=== PATIENT | female | born 1955 | race Caucasian/White ===

== ENCOUNTER 2019-02-05 22:05 | Emergency (ER) | payer MEDICAID ==
[~2019-02-05] VITALS: Ht 160 cm; Wt 83.9 kg
[~2019-02-05 22:05] MED LIST: CLON1TAB3
--- OUTSIDE RECORDS SUMMARY | 2019-02-05 22:10 | XMS REPORT | Continuity of Care Document ---
Author Organization Unknown Address Unknown Allergies Active Description Code Type Severity Reaction Onset Reported/Identified Relationship to Patient Clinical Status Yes IODINE 4540 DRUG INGREDI High Other 08/17/2016 08/17/2016 Yes RISPERIDONE 7254 DRUG INGREDI N /A Other 08/17/2016 08/17/2016 Medications Medication Packaging Start Date Stop Date Route Dosage Sig ALUM T MAG HYDROXIDE-SIMETH 200-200-20 MG/5ML PO SUSP 08/17/2016 Oral 30 4 TIMES DAILY PRN TRAZODONE HCL 100 MG PO TABS Oral 100 BEDTIME PRN OLANZAPINE 10 MG PO TBDP 2015 Oral 10 2 TIMES DAILY PRN ACETAMINOPHEN 325 MG PO TABS Oral 650 EVERY 6 HOURS PRN NICOTINE POLACRILEX 2 MG MT LOZG 08/17/2016 Oral 2 EVERY 2 HOURS PRN MAGNESIUM HYDROXIDE 400 MG/5ML PO SUSP 08/17/2016 Oral 30 DAILY PRN QUETIAPINE FUMARATE 25 MG PO TABS 08/17/2016 Oral 25 4 TIMES DAILY PRN ARIPIPRAZOLE 10 MG PO TABS 2015 Oral 10 2 TIMES DAILY PROPRANOLOL HCL 10 MG PO TABS Oral 20 DAILY INFLUENZA VAC SPLIT QUAD 0.5 ML IM DANTE 08/18/2016 Intramuscular 0.5 ONCE ESCITALOPRAM OXALATE 10 MG PO TABS 08/18/2016 Oral 10 DAILY INFLUENZA VAC SPLIT QUAD 0.5 ML IM DANTE 08/18/2016 Intramuscular 0.5 Prior to discharge ESCITALOPRAM OXALATE 10 MG PO TABS 08/19/2016 Oral 10 ONCE ESCITALOPRAM OXALATE 20 MG PO TABS 08/20/2016 Oral 20 DAILY Problems There is no data. Procedures There is no data. Results Test Result Range COMPREHENSIVE METABOLIC PANEL - 08/18/16 06:26 ALBUMIN 4.2 g/dL 3.4-4.8 ALKALINE PHOSPHATASE 80 U/L 29-122 ALT 39 U/L 10-46 AST 29 U/L 16-37 BILIRUBIN,TOTAL 0.4 mg/dL 0.2-1.3 BUN BLOOD 13 mg/dL 6-20 CALCIUM 9.8 mg/dL 8.7-10.5 CHLORIDE 110 mmol/L 99-111 CO2 23 mmol/L 20-36 CREATININE 0.58 mg/dL 0.40-1.10 EGFR > mL/min >59 GLUCOSE 107 mg/dL 74-106 POTASSIUM 4.6 mmol/L 3.6-4.9 PROTEIN TOTAL 6.8 g/dL 6.4-8.3 SODIUM 142 mmol/L 136-145 TSH (REFLEX FREE T4 IF ABNORMAL) - 08/18/16 06:26 TSH 0.793 uIU/mL 0.400-4.000 CBC WITH AUTO DIFFERENTIAL - 08/18/16 06:26 BASOPHILS RELATIVE PERCENT 0.4 % 0.0-2.5 EOSINOPHILS RELATIVE PERCENT 1.4 % <=5.0 HEMATOCRIT 40.8 % 34.9-44.5 HEMOGLOBIN 13.4 g/dL 12.0-15.5 LYMPHOCYTES RELATIVE PERCENT 36.6 % 22.0-49.0 MEAN CORPUSCULAR HEMOGLOBIN 29.4 pg 26.0-34.0 MEAN CORPUSCULAR HEMOGLOBIN CONC 32.9 g/dL 31.0-37.0 MEAN CORPUSCULAR VOLUME 89.3 fL 81.6-98.3 MONOCYTES RELATIVE PERCENT 6.2 % 2.0-9.0 NEUTROPHILS RELATIVE PERCENT 55.4 % 40.0-75.0 PLATELET COUNT 208 10E9/L 150-450 RED BLOOD CELL COUNT 4.57 10E12/L 3.90-5.03 RED CELL DISTRIBUTION WIDTH 13.0 % 11.9-15.5 [id number] 5.3 10E9/L 3.5-10.5 8001484 2.00 10E9/L 0.90-2.90 [id number] 0.30 10E9/L 0.30-0.90 [id number] 0.10 10E9/L 0.05-0.50 [id number] 3.00 10E9/L 1.70-7.00 [id number] 0.00 10E9/L 0.00-0.30 DRUG SCREEN (8) MEDICAL - 08/18/16 17:10 AMPHETAMINE Positive Cutoff 1000 ng/mL Negative BARBITURATES Negative Cutoff 200 ng/mL Negative BENZODIAZEPINES Negative Cutoff 200 ng/mL Negative COCAINE (METABOLITE) Negative Cutoff 300 ng/mL Negative MDMA URINE Negative Cutoff 500 ng/mL Negative OPIATES Negative Cutoff 300 ng/mL Negative PCP Negative Cutoff 25 ng/mL Negative PH UA 7.0 5.0-8.0 SPECIFIC GRAVITY UA 1.020 1.003-1.030 THC Negative Cutoff 50 ng/mL Negative [id number] Chain of custody is on file at [facility], [place], [place] Encounters ACCT No. Visit Date/Time Discharge Status Pt. Type Provider Facility Loc./Unit Complaint [id number] 08/17/2016 14:48:00 08/19/2016 17:10:00 DIS Inpatient AMILCAR MADERA [facility] VN [id number] 08/17/2016 16:30:39 Document Registration
--- NOTE | 2019-02-05 22:30 | ED Lower Extremity ---
General Stated Complaint: LEG PAIN History of Present Illness Date Seen by Provider: Feb 05, 2019 Time Seen by Provider: 22:26 Initial Comments Patient presents emergency department for evaluation of muscle spasms to bilateral legs have been going on for approximately 45 minutes. Spasms are primarily in the bilateral hamstrings and she says they are intense and they usually do not last this long. She says that she does get muscle spasms but usually go away quicker and usually resolve on their own. She says she has drinking pop but not necessarily staying that well-hydrated. She drove herself here and does not want to take any sedating medications. Allergies and Home Medications Allergies Coded Allergies: iodine (Unverified Allergy, Mild, 02/05/19) ziprasidone (Unverified Allergy, Mild, 02/05/19) Home Medications No Active Prescriptions or Reported Meds Patient Home Medication List Home Medication List Reviewed: Yes Review of Systems Constitutional: No chills, No fever Respiratory: No short of breath Cardiovascular: No chest pain Gastrointestinal: No diarrhea, No nausea, No vomiting Skin: No rash Psychiatric/Neurological: Denies Numbness, Denies Weakness Past Yqdkhcq-Qqxvtd-Yknfbp Hx Patient Social History Recent Foreign Travel: No Contact w/Someone Who Travel: No Physical Exam Vital Signs Vital Signs - First Documented 02/05/19 22:32 Temp 97.8 Pulse 91 Resp 18 B/P (MAP) 146/83 (104) Pulse Ox 97 Capillary Refill : Height, Weight, BMI Height: '" Weight: lbs. oz. kg; BMI Method: General Appearance: WD/WN, no apparent distress Cardiovascular: regular rate, rhythm Respiratory: no respiratory distress Legs: bilateral leg non-tender, bilateral leg normal inspection, bilateral leg normal range of motion Neurologic/Psychiatric: alert, oriented x 3 Skin: normal color, warm/dry Progress/Results/Core Measures Results/Orders Lab Results Laboratory Tests Test 02/05/19 23:00 Range/Units Sodium Level 141 135-145 MMOL/L Potassium Level 4.2 3.6-5.0 MMOL/L Chloride Level 104 98-107 MMOL/L Carbon Dioxide Level 21 21-32 MMOL/L Anion Gap 16 H 5-14 MMOL/L Blood Urea Nitrogen 20 H 7-18 MG/DL Creatinine 0.93 0.60-1.30 MG/DL Estimat Glomerular Filtration Rate > 60 BUN/Creatinine Ratio 22 Glucose Level 108 H 70-105 MG/DL Calcium Level 9.9 8.5-10.1 MG/DL Corrected Calcium 8.5-10.1 MG/DL Magnesium Level 1.6 L 1.8-2.4 MG/DL Total Bilirubin 0.5 0.1-1.0 MG/DL Aspartate Amino Transf (AST/SGOT) 18 5-34 U/L Alanine Aminotransferase (ALT/SGPT) 17 0-55 U/L Alkaline Phosphatase 78 40-136 U/L Total Protein 7.3 6.4-8.2 GM/DL Albumin 4.7 H 3.2-4.5 GM/DL My Orders Orders - ARIELA CISNEROS DO Magnesium (02/05/19 22:25) Comprehensive Metabolic Panel (02/05/19 22:25) Vital Signs/I&O 02/05/19 22:32 Temp 97.8 Pulse 91 Resp 18 B/P (MAP) 146/83 (104) Pulse Ox 97 Progress Progress Note : Progress Note Patient's exam is quite benign with no pain swelling or deformity and she was able to ambulate with a normal gait. Given she does not stay well-hydrated and will go ahead and check renal function and electrolytes and see if there is any obvious abnormality I can correct here. Patient given Y solution to drink and her muscle cramps improved significantly. Her magnesium level is slightly decreased and I told her we could replace IV however she refused stating that she was quite tired and wanted to go home but returned replace her magnesium supplements and diet. I told patient to follow up primary care provider within 2-3 days to ensure improvement and come back sooner if worsening pain swelling fevers or general concerns. Patient aware and agreeable with plan for discharge and verbalized understanding of the above instructions. Departure Impression Primary Impression: Hypomagnesemia Additional Impression: Muscle cramping Disposition: 01 HOME, SELF-CARE Condition: Stable Departure-Patient Inst. Decision time for Depature: 23:50 Referrals: ANDRES RAMIREZ MD (PCP) Primary Care Physician NO,LOCAL PHYSICIAN (Family) Primary Care Physician Patient Instructions: Low Magnesium Level (DC) Scripts No Active Prescriptions or Reported Meds ARIELA CISNEROS DO Feb 05, 2019 22:30
[2019-02-05 23:32] LABS: ALANINE AMINOTRANSFERASE 17 U/L (0-55); ALBUMIN 4.7 GM/DL (3.2-4.5); ALKALINE PHOSPHATASE 78 U/L (40-136); BILIRUBIN,TOTAL 0.5 MG/DL (0.1-1.0); BUN/CREATININE RATIO 22; CALCIUM 9.9 MG/DL (8.5-10.1); CARBON DIOXIDE 21 MMOL/L (21-32); CHLORIDE 104 MMOL/L (98-107); CREATININE SERUM 0.93 MG/DL (0.60-1.30); GFR ESTIMATED > 60; GLUCOSE 108 MG/DL (70-105); MAGNESIUM 1.6 MG/DL (1.8-2.4); POTASSIUM 4.2 MMOL/L (3.6-5.0); SODIUM 141 MMOL/L (135-145); TOTAL PROTEIN 7.3 GM/DL (6.4-8.2)
[2019-02-06 00:09] VITALS: BP 123/96
== END 2019-02-06 00:09 | disposition home or self-care (01) ==
LOC: EDUNIT# 22:05 → ER FS 22:06
DX: R25.2 Cramp and spasm (principal); E83.42 Hypomagnesemia; Z91.041 Radiographic dye allergy status; Z88.8 Allergy status to other drugs, medicaments and biological substances
CPT/HCPCS: 36415; 80053; 83735; 99283

== ENCOUNTER 2019-03-05 23:51 | Emergency (ER) | payer MEDICAID ==
[~2019-03-05] VITALS: Ht 162.6 cm; Wt 81.6 kg
--- OUTSIDE RECORDS SUMMARY | 2019-03-05 23:57 | XMS REPORT | Continuity of Care Document ---
[...] RED CELL DISTRIBUTION WIDTH 13.0 % 11.9-15.5 [id number] 5.3 10E9/L 3.5-10.5 [id number] 2.00 10E9/L 0.90-2.90 [id number] 0.30 10E9/L 0.30-0.90 [id number] 0.10 10E9/L 0.05-0.50 [id number] 3.00 10E9/L 1.70-7.00 [id number] 0.00 10E9/L 0.00-0.30 DRUG SCREEN (8) MEDICAL [...] 1.003-1.030 THC Negative Cutoff 50 ng/mL Negative [id number] Chain of custody is on file at [facility], [place], [place] Encounters ACCT No. Visit Date/Time Discharge Status Pt. Type Provider Facility Loc./Unit Complaint [id number] 08/17/2016 14:48:00 08/19/2016 17:10:00 DIS Inpatient AMILCAR MADERA [facility] VN [id number] 08/17/2016 16:30:39 Document Registration
--- NOTE | 2019-03-06 02:27 | ED General ---
General Chief Complaint: General Problems/Pain Stated Complaint: TICK BITE NOW HAS JOINT PAIN RT SIDE Nursing Triage Note: PT. REPORTED HER JOINTS ARE HURTING IN HER HANDS, SHOULDERS, HIPS, AND KNEES PT. STATED THE PAIN STARTED YESTERDAY AND GOT WORSE TONIGHT. SHE REPORTED SHE HAD A TICK BITE ON THE RIGHT UPPER LEG A FEW DAYS AGO. Nursing Sepsis Screen: No Definite Risk Source of Information: Patient History of Present Illness Date Seen by Provider: March 06, 2019 Time Seen by Provider: 01:58 Initial Comments 63 yo F presenting with complaints of diffuse joint pain since having a tick bite. [place] and then started to have hand pain bilaterally yesterday. Today her joint pain and spread to her shoulders and hips. At 3 PM or so today she noticed that she had a tick was attached to her right groin. She felt that it had been there for at least a couple of days his that was engorged. She did remove the tick but continued to feel bad. Her joint pains continued to spread. She was feeling so bad overnight that she came to the emergency department. She has not tried anything for the pain. She was concerned that the tick bite might be contributing to her symptoms of feeling bad. She was not sure what can be done if anything about her symptoms but came to the emergency department to be evaluated didn't see what might be done. She states that she does have an appointment on with Dr. Ramirez for other concerns. Allergies and Home Medications Allergies Coded Allergies: iodine (Unverified Allergy, Mild, 02/05/19) ziprasidone (Unverified Allergy, Mild, 02/05/19) Home Medications Prednisone 20 Mg Tab, 40 MG PO DAILY Prescribed by: ASAD CAMPBELL on 03/06/19 0232 Patient Home Medication List Home Medication List Reviewed: Yes Review of Systems Review of Systems Constitutional: chills, fever (subjective), malaise EENTM: no symptoms reported Cardiovascular: no symptoms reported Gastrointestinal: no symptoms reported Genitourinary: no symptoms reported Musculoskeletal: see HPI, joint pain; No joint swelling; muscle pain Skin: change in color (redness to right groin where she removed the tick) Psychiatric/Neurological: Headache Past Nvzrajn-Xmvjjy-Judnus Hx Past Med/Social Hx: Reviewed Nursing Past Med/Soc Hx Patient Social History 2nd Hand Smoke Exposure: No Recent Foreign Travel: No Contact w/Someone Who Travel: No Recent Infectious Disease Expo: No Recent Hopitalizations: No Physical Abuse: No Sexual Abuse: No Mistreated: No Fear: No Past Medical History Surgeries: Yes Appendectomy, Gallbladder, Tonsillectomy Gastrointestinal: Yes Gastroesophageal Reflux Musculoskeletal: Yes Chronic Back Pain Endocrine: No HEENT: No Cancer: No Psychosocial: No Physical Exam Vital Signs Vital Signs - First Documented 03/06/19 01:15 Temp 98.1 Pulse 76 Resp 18 B/P (MAP) 152/91 (111) Pulse Ox 97 O2 Delivery Room Air Capillary Refill : Less Than 3 Seconds Height, Weight, BMI Height: 5'4.00" Weight: 180lbs. oz. 81.415213yi; BMI Method:Stated General Appearance: No Apparent Distress, WD/WN HEENT: PERRL/EOMI, Pharynx Normal Neck: Full Range of Motion, Non Tender, Supple Respiratory: Chest Non Tender, Lungs Clear, Normal Breath Sounds, No Respiratory Distress Cardiovascular: Regular Rate, Rhythm, Normal Peripheral Pulses Rectal: Deferred Extremity: Normal Capillary Refill, Normal Range of Motion, No Pedal Edema, Other (tenderness to bilateral hands, shoulders, hips and knees with palpation and ROM) Neurologic/Psychiatric: Alert, Oriented x3, No Motor/Sensory Deficits, telephone information supervisor II- XII Norm as Tested Skin: Warm/Dry, Other (pt describes erythematous tender area to the right groin where the tick had been attached but deferred showing the area to me) Progress/Results/Core Measures Suspected Sepsis Recent Fever Within 48 Hours: No Infection Criteria Present: None New/Unexplained Altered Menta: No Sepsis Screen: No Definite Risk SIRS Temperature:98.1 Pulse: 76 Respiratory Rate: 18 Blood Pressure 152 /91 Mean: 111 Results/Orders My Orders Orders - ASAD CAMPBELL MD Doxycycline Hyclate Tablet (Vibramycin T (03/06/19 02:33) Ketorolac Injection (Toradol Injection) (03/06/19 02:45) Dexamethasone Injection (Decadron Inject (03/06/19 02:45) Medications Given in ED Current Medications Medications Dose Ordered Sig/Shara Route Start Time Stop Time Status Last Admin Dose Admin Dexamethasone Sodium Phosphate 10 mg ONCE ONCE IM 03/06/19 02:45 03/06/19 02:46 DC 03/06/19 02:40 10 MG Ketorolac Tromethamine 60 mg ONCE ONCE IM 03/06/19 02:45 03/06/19 02:46 DC 03/06/19 02:40 60 MG Vital Signs/I&O 03/06/19 03/06/19 01:15 02:48 Temp 98.1 98.1 Pulse 76 76 Resp 18 18 B/P (MAP) 152/91 (111) 152/91 (111) Pulse Ox 97 97 O2 Delivery Room Air Room Air Capillary Refill : Less Than 3 Seconds Blood Pressure Mean: 111 Progress Note : Progress Note Since she presented so early from removing the Tick she would be in a window where she could get a single dose of Doxycycline 200 mg to take as a prophylactic dose. Will give Toradol and Dexamethasone IM here to help with inflammation and joint pain and discharge with 3 additional days of steroids. Keep appointment on with Dr. Ramirez for further follow up. Advised that any tick borne illness blood work would have to be done after 2-3 weeks once she has any antibodies form for testing. Departure Impression Primary Impression: Polyarthralgia Additional Impression: Tick bite of groin Qualified Codes: S30.861A - Insect bite (nonvenomous) of abdominal wall, initial encounter; W57.XXXA - Bitten or stung by nonvenomous insect and other nonvenomous arthropods, initial encounter Disposition: 01 HOME, SELF-CARE Condition: Stable Departure-Patient Inst. Decision time for Depature: 02:23 Referrals: ANDRES RAMIREZ MD (PCP) Primary Care Physician NO,LOCAL PHYSICIAN (Family) Primary Care Physician Patient Instructions: Joint Pain, Insect Bites and Stings Add. Discharge Instructions: Take anti-inflammatory medicine to help with tick bite and joint pain. The one time dose of antibiotic is recommended dose to cover you for possible Lyme disease from the tick bite since you presented so early. Check with Dr. Ramirez as scheduled on and ask her about these symptoms as well. All discharge instructions reviewed with patient and/or family. Voiced understanding. Scripts Prednisone (Prednisone) 20 Mg Tab 40 MG PO DAILY for 3 Days, #6 TAB 0 Refills Prov: ASAD CAMPBELL MD 03/06/19 ASAD CAMPBELL MD March 06, 2019 02:27
[2019-03-06] MEDS ORDERED: PRD20T PO (02:32)
[2019-03-06] MEDS ORDERED: DOXYCYCLINE 100 MG (VIBRAMYCIN) TABLET PO STA (02:33)
[2019-03-06] MEDS ORDERED: KETOROLAC 60 MG/2 ML VIAL IM ONE (02:45)
[2019-03-06] MEDS ORDERED: DEXAMETHASONE 10 MG/ML (DECADRON) 1 ML VIAL IM ONE (02:45)
[2019-03-06 02:48] VITALS: BP 152/91
== END 2019-03-06 02:46 | disposition home or self-care (01) ==
LOC: EDUNIT# 23:51 → ER FS 23:53
DX: S30.861A Insect bite (nonvenomous) of abdominal wall, initial encounter (principal); M13.0 Polyarthritis, unspecified; K21.9 Gastro-esophageal reflux disease without esophagitis; Z91.041 Radiographic dye allergy status; Z90.49 Acquired absence of other specified parts of digestive tract; Z90.89 Acquired absence of other organs; Z88.8 Allergy status to other drugs, medicaments and biological substances; W57.XXXA Bitten or stung by nonvenomous insect and other nonvenomous arthropods, initial encounter
CPT/HCPCS: 96372; 99284

== ENCOUNTER 2019-05-31 17:07 | Emergency (ER) | payer MEDICAID ==
[~2019-05-31] VITALS: Ht 162.6 cm; Wt 83.9 kg
[~2019-05-31 17:07] MED LIST changes: +PRD20T PO
--- OUTSIDE RECORDS SUMMARY | 2019-05-31 17:11 | XMS REPORT | Continuity of Care Document ---
Author Organization Unknown Address Unknown Phone Unavailable Allergies Active Description Code Type Severity Reaction Onset Reported/Identified Relationship to Patient Clinical Status Yes IODINE 4540 DRUG INGREDI High Other 08/17/2016 08/17/2016 Yes RISPERIDONE 7254 DRUG INGREDI N/A Other 08/17/2016 08/17/2016 Yes iodine [id number] Drug Allergy Mild N/A 02/05/2019 Yes ziprasidone [id number] Drug Allergy Mild N/A 02/05/2019 Medications Medication Packaging Start Date Stop Date Route Dosage Sig ALUM T MAG HYDROXIDE-SIMETH 200-200-20 MG/5ML PO SUSP 08/17/2016 Oral 30 4 TIMES DAILY PRN TRAZODONE HCL 100 MG PO TABS 08/17/2016 Oral 100 BEDTIME PRN OLANZAPINE 10 MG PO TBDP 08/17/2016 Oral 10 2 TIMES DAILY PRN ACETAMINOPHEN 325 MG PO TABS 08/17/2016 Oral 650 EVERY 6 HOURS PRN NICOTINE POLACRILEX 2 MG MT LOZG 08/17/2016 Oral 2 EVERY 2 HOURS PRN MAGNESIUM HYDROXIDE 400 MG/5ML PO SUSP 08/17/2016 Oral 30 DAILY PRN QUETIAPINE FUMARATE 25 MG PO TABS 08/17/2016 Oral 25 4 TIMES DAILY PRN ARIPIPRAZOLE 10 MG PO TABS 08/17/2016 Oral 10 2 TIMES DAILY PROPRANOLOL HCL 10 MG PO TABS 08/18/2016 Oral 20 DAILY INFLUENZA VAC SPLIT QUAD 0.5 ML IM DANTE 08/18/2016 Intramuscular 0.5 ONCE ESCITALOPRAM OXALATE 10 MG PO TABS 08/18/2016 Oral 10 DAILY INFLUENZA VAC SPLIT QUAD 0.5 ML IM DANTE 08/18/2016 Intramuscular 0.5 Prior to discharge ESCITALOPRAM OXALATE 10 MG PO TABS 08/19/2016 Oral 10 ONCE ESCITALOPRAM OXALATE 20 MG PO TABS 08/20/2016 Oral 20 DAILY Problems Date Dx Coded Attending Type Code Diagnosis Diagnosed By 02/06/2019 ARIELA CISNEROS DO Ot E83.42 HYPOMAGNESEMIA 02/06/2019 ARIELA CISNEROS DO Ot M62.838 OTHER MUSCLE SPASM 02/06/2019 BLAYNE DO, ARIELA Jackson Ot R25.2 CRAMP AND SPASM 02/06/2019 BLAYNE LOZADA, ARIELA Jackson Ot Z88.8 ALLERGY STATUS TO OTH DRUG/MEDS/BIOL SUB 02/06/2019 ARIELA CISNEROS DO Ot Z91.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 DYE ALLERGY STATUS 03/08/2019 ASAD CAMPBELL MD Ot K21.9 GASTRO-ESOPHAGEAL REFLUX DISEASE WITHOUT 03/08/2019 ASAD CAMPBELL MD Ot M13.0 POLYARTHRITIS, UNSPECIFIED 03/08/2019 ASAD CAMPBELL MD Ot S30.861A INSECT BITE (NONVENOMOUS) OF ABDOMINAL W 03/08/2019 ASAD CAMPBELL MD Ot W57.XXXA BIT/STUNG BY NONVENOM INSECT OTH NONVE 03/08/2019 ASAD CAMPBELL MD Ot Z88.8 ALLERGY STATUS TO OTH DRUG/MEDS/BIOL SUB 03/08/2019 ASAD CAMPBELL MD Ot Z90.49 ACQUIRED ABSENCE OF OTHER SPECIFIED PART 03/08/2019 ASAD CAMPBELL MD Ot Z90.89 ACQUIRED ABSENCE OF OTHER ORGANS 03/08/2019 ASAD CAMPBELL MD Ot Z91.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 DYE ALLERGY STATUS 03/09/2019 ASAD CAMPBELL MD Ot K21.9 GASTRO-ESOPHAGEAL REFLUX DISEASE WITHOUT 03/09/2019 ASAD CAMPBELL MD Ot M13.0 POLYARTHRITIS, UNSPECIFIED 03/09/2019 ASAD CAMPBELL MD Ot S30.861A INSECT BITE (NONVENOMOUS) OF ABDOMINAL W 03/09/2019 ASAD CAMPBELL MD Ot W57.XXXA BIT/STUNG BY NONVENOM INSECT OTH NONVE 03/09/2019 ASAD CAMPBELL MD Ot Z88.8 ALLERGY STATUS TO OTH DRUG/MEDS/BIOL SUB 03/09/2019 ASAD CAMPBELL MD Ot Z90.49 ACQUIRED ABSENCE OF OTHER SPECIFIED PART 03/09/2019 ASAD CAMPBELL MD Ot Z90.89 ACQUIRED ABSENCE OF OTHER ORGANS 03/09/2019 ASAD CAMPBELL MD Ot Z91.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 DYE ALLERGY STATUS 03/11/2019 ASAD CAMPBELL MD Ot K21.9 GASTRO-ESOPHAGEAL REFLUX DISEASE WITHOUT 03/11/2019 ASAD CAMPBELL MD, Ot M13.0 POLYARTHRITIS, UNSPECIFIED 03/11/2019 ASAD CAMPBELL MD, Ot S30.861A INSECT BITE (NONVENOMOUS) OF ABDOMINAL W 03/11/2019 ASAD CAMPBELL MD, Ot W57.XXXA BIT/STUNG BY NONVENOM INSECT OTH NONVE 03/11/2019 ASAD CAMPBELL MD, Ot Z88.8 ALLERGY STATUS TO [facility] DRUG/MEDS/BIOL SUB 03/11/2019 ASAD CAMPBELL MD, Ot Z90.49 ACQUIRED ABSENCE OF OTHER SPECIFIED PART 03/11/2019 ASAD CAMPBELL MD, Ot Z90.89 ACQUIRED ABSENCE OF OTHER ORGANS 03/11/2019 ASAD CAMPBELL MD, Ot Z91.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 DYE ALLERGY STATUS Procedures There is no data. Results Test [...] RED CELL DISTRIBUTION WIDTH 13.0 % 11.9-15.5 2767180 5.3 10E9/L 3.5-10.5 8650614 2.00 10E9/L 0.90-2.90 8973294 0.30 10E9/L 0.30-0.90 2145417 0.10 10E9/L 0.05-0.50 9472612 3.00 10E9/L 1.70-7.00 0857860 0.00 10E9/L 0.00-0.30 DRUG SCREEN (8) MEDICAL [...] 1.003-1.030 THC Negative Cutoff 50 ng/mL Negative [id number] Chain of custody is on file at [facility], [place], [place] Comprehensive metabolic panel - 02/05/19 23:00 Serum or plasma sodium measurement (moles/volume) 141 mmol/L 135-145 Serum or plasma potassium measurement (moles/volume) 4.2 mmol/L 3.6-5.0 Serum or plasma chloride measurement (moles/volume) 104 mmol/L 98-107 Carbon dioxide 21 mmol/L 21-32 Serum or plasma anion gap determination (moles/volume) 16 mmol/L 5-14 Serum or plasma urea nitrogen measurement (mass/volume) 20 mg/dL 7-18 Serum or plasma creatinine measurement (mass/volume) 0.93 mg/dL 0.60-1.30 Serum or plasma urea nitrogen/creatinine mass ratio 22 NRG Serum or plasma creatinine measurement with calculation of estimated glomerular filtration rate > NRG Serum or plasma glucose measurement (mass/volume) 108 mg/dL 70-105 Serum or plasma calcium measurement (mass/volume) 9.9 mg/dL 8.5-10.1 Serum or plasma total bilirubin measurement (mass/volume) 0.5 mg/dL 0.1-1.0 Serum or plasma alkaline phosphatase measurement (enzymatic activity/volume) 78 U/L 40-136 Serum or plasma aspartate aminotransferase measurement (enzymatic activity/volume) 18 U/L 5-34 Serum or plasma alanine aminotransferase measurement (enzymatic activity/volume) 17 U/L 0-55 Serum or plasma protein measurement (mass/volume) 7.3 g/dL 6.4-8.2 Serum or plasma albumin measurement (mass/volume) 4.7 g/dL 3.2-4.5 Magnesium - 02/05/19 23:00 Magnesium 1.6 mg/dL 1.8-2.4 CMP - 02/22/19 08:07 GLUCOSE 117 mg/dL 65-99 UREA NITROGEN (BUN) 15 mg/dL 7-25 CREATININE 0.63 mg/dL 0.50-0.99 eGFR NON-AFR. [place] 97 mL/min/1.73m2 > OR=60 eGFR 112 mL/min/1.73m2 > OR=60 BUN/CREATININE RATIO NOT APPLICABLE (calc) 6-22 SODIUM 140 mmol/L 135-146 POTASSIUM 4.4 mmol/L 3.5-5.3 CHLORIDE 107 mmol/L 98-110 CARBON DIOXIDE 22 mmol/L 20-32 CALCIUM 9.9 mg/dL 8.6-10.4 PROTEIN, TOTAL 7.2 g/dL 6.1-8.1 ALBUMIN 4.5 g/dL 3.6-5.1 GLOBULIN 2.7 g/dL (calc) 1.9-3.7 ALBUMIN/GLOBULIN RATIO 1.7 (calc) 1.0-2.5 BILIRUBIN, TOTAL 0.5 mg/dL 0.2-1.2 ALKALINE PHOSPHATASE 69 U/L 33-130 AST 16 U/L 10-35 ALT 18 U/L 6-29 LYME, TOTAL ANTIBODY/REFLEX WESTERN BLOT - 04/03/19 10:19 LYME AB SCREEN <0.90 index NRG Encounters ACCT No. Visit Date/Time Discharge Status Pt. Type Provider Facility Loc./Unit Complaint [id number] 05/22/2019 14:20:00 05/22/2019 23:59:59 CLS Outpatient ANDRES RAMIREZ [facility] [id number] 04/03/2019 10:15:00 Document Registration [id number] 02/22/2019 08:00:00 Document Registration [id number] 08/17/2016 14:48:00 08/19/2016 17:10:00 [id number] 08/17/2016 16:30:39 Document Registration [id number] 03/05/2019 23:53:00 03/06/2019 02:46:00 DIS Outpatient ADRIAN GONZALEZ, ASAD Garcia [facility] ER FS TICK BITE NOW HAS JOINT PAIN RT SIDE [id number] 02/05/2019 22:06:00 02/06/2019 00:09:00 DIS Emergency ARIELA CISNEROS DO [facility] ER FS LEG PAIN [id number] 05/31/2019 17:08:00 ACT Emergency ASTER GONZALEZ, LOIS Mcdonough [facility] ER FS NAUSEA, ABD PAIN, NECK PAIN
[2019-05-31] MEDS ORDERED: NS IV 1000 ML 1,000 ML IV SCH (17:45)
--- NOTE | 2019-05-31 18:10 | Diagnostic Imaging Report ---
PATIENT HISTORY: Right-sided neck pain and fever. TECHNIQUE: Frontal view of the chest. COMPARISON: None. FINDINGS: Lung volumes are normal. Hazy opacity in the left lung base is thought to be due to overlying soft tissue. No pleural effusion or pneumothorax is seen. The cardiac silhouette is normal in size. IMPRESSION: No acute pulmonary abnormality seen. Dictated by: Dictated on workstation # [id number]
[2019-05-31 18:16] LABS: BILIRUBIN,URINE NEGATIVE (NEGATIVE); CLARITY,URINE CLEAR; COLOR,URINE YELLOW; GLUCOSE, URINE (UA) NEGATIVE (NEGATIVE); KETONES,URINE NEGATIVE (NEGATIVE); LEUKOCYTE ESTERASE ,URINE NEGATIVE (NEGATIVE); NITRITE,URINE NEGATIVE (NEGATIVE); PH,URINE 5.5 (5-9); PROTEIN,URINE NEGATIVE (NEGATIVE); UROBILINOGEN,URINE 0.2 MG/DL (NORMAL)
[2019-05-31 18:17] LABS: BACTERIA,URINE MODERATE /HPF; SQUAMOUS EPITHELIAL CELL,UR 25-50 /HPF
[2019-05-31 20:13] LABS: WHITE BLOOD COUNT 8.9 10^3/uL (4.3-11.0)
[2019-05-31 20:14] LABS: BASOPHILS % (AUTO) 0 % (0-10); EOSINOPHILS % (AUTO) 0 % (0-10); HEMATOCRIT 42 % (35-52); HEMOGLOBIN 14.2 G/DL (11.5-16.0); LYMPHOCYTES # (AUTO) 1.6 X 10^3 (1.0-4.0); LYMPHOCYTES % (AUTO) 18 % (12-44); MEAN CORPUSCULAR HEMOGLOBIN 30 PG (25-34); MEAN CORPUSCULAR HGB CONC 34 G/DL (32-36); MEAN CORPUSCULAR VOLUME 89 FL (80-99); MEAN PLATELET VOLUME 9.6 FL (7.4-10.4); MONOCYTES # (AUTO) 0.6 X 10^3 (0.0-1.0); MONOCYTES % (AUTO) 7 % (0-12); NEUTROPHILS # (AUTO) 6.7 X 10^3 (1.8-7.8); NEUTROPHILS % (AUTO) 75 % (42-75); PLATELET COUNT 215 10^3/uL (130-400); RED CELL DISTRIBUTION WIDTH 13.1 % (10.0-14.5)
[2019-05-31] MEDS ORDERED: KETOROLAC 30 MG/ML VIAL IVP ONE (20:15)
[2019-05-31 20:18] LABS: ALANINE AMINOTRANSFERASE 34 U/L (0-55); ALBUMIN 4.5 GM/DL (3.2-4.5); ALKALINE PHOSPHATASE 83 U/L (40-136); BILIRUBIN,TOTAL 0.5 MG/DL (0.1-1.0); BUN/CREATININE RATIO 20; CALCIUM 9.7 MG/DL (8.5-10.1); CARBON DIOXIDE 18 MMOL/L (21-32); CHLORIDE 102 MMOL/L (98-107); CREATININE SERUM 0.51 MG/DL (0.60-1.30); GFR ESTIMATED > 60; GLUCOSE 129 MG/DL (70-105); POTASSIUM 4.1 MMOL/L (3.6-5.0); SODIUM 139 MMOL/L (135-145); TOTAL PROTEIN 7.8 GM/DL (6.4-8.2)
[2019-05-31] MEDS ORDERED: RABIES IMMUNE GLOBULIN 300 UNIT/ML 5 ML (HyperRAB) IM ONE (20:30)
[2019-05-31] MEDS ORDERED: RABIES VACCINE HUMAN DIPL CELL 1 ML/2.5 UNITS SYR IM ONE (20:30)
--- NOTE | 2019-05-31 20:47 | ED Fever ---
History of Present Illness General Chief Complaint: General Problems/Pain Stated Complaint: NAUSEA, ABD PAIN, NECK PAIN Nursing Triage Note: Patient c/o severe neck pain, fever, nausea, and abdominal pain. Patient states that she hasn't been able to move her neck for 3 days and it is causing her severe pain. Reports that her stomach cramping, nausea, and fever started today. She reports that she had a bat in her room but doesn't feel like she was bitten and doesn't have any wounds that she knows of. Sepsis Screen: Possible Sepsis Risk Source: patient Exam Limitations: no limitations History of Present Illness Date Seen by Provider: May 31, 2019 Time Seen by Provider: 17:00 Initial Comments Patient c/o severe neck pain, fever, nausea, and abdominal pain. Patient states that she hasn't been able to move her neck for 3 days and it is causing her severe pain. Reports that her stomach cramping, nausea, and fever started today. She reports that she had a bat in her room but doesn't feel like she was bitten and doesn't have any wounds that she knows of . The incident of the bat was in her room 3 weeks ago. She states she has pain in her neck anytime she turns it. She does denies any nuchal rigidity or meningismus but she does have somewhat of a stiff neck to turning it. Timing/Duration: this morning Fever Quality: low grade Fever Therapy [employer]: Ibuprofen Associated Symptoms: abdominal pain, headache, muscle aches Allergies and Home Medications Allergies Coded Allergies: iodine (Unverified Allergy, Mild, 02/05/19) ziprasidone (Unverified Allergy, Mild, 02/05/19) Home Medications Prednisone 20 Mg Tab, 40 MG PO DAILY Prescribed by: ASAD CAMPBELL on 03/06/19 0232 Patient Home Medication List Home Medication List Reviewed: Yes Review of Systems Review of Systems Constitutional: fever EENTM: no symptoms reported; No blurred vision, No double vision, No throat pain Respiratory: no symptoms reported; No short of breath, No stridor Cardiovascular: no symptoms reported; No edema, No palpitations, No syncope Gastrointestinal: abdominal pain (patient has mild diffuse abdominal pain); No diarrhea, No nausea Genitourinary: no symptoms reported; No hematuria, No pain : No Skin: no symptoms reported Psychiatric/Neurological: See HPI; Denies Paresthesia, Denies Seizure, Denies Tingling Hematologic/Lymphatic: See HPI; Denies Anemia, Denies Blood Clots, Denies Other Immunological/Allergic: denies see HPI, denies transplant Past Evhxhze-Fvdisr-Ojmtpi Hx Patient Social History Alcohol Use: Past History Recreational Drug Use: No Drug of Choice: Hx-Meth Smoking Status: Never a Smoker 2nd Hand Smoke Exposure: No Recent Foreign Travel: No Contact w/Someone Who Travel: No Recent Infectious Disease Expo: No Recent Hopitalizations: No Physical Abuse: No Sexual Abuse: No Mistreated: No Fear: No Seasonal Allergies Seasonal Allergies: No Past Medical History Surgeries: Yes Appendectomy, Gallbladder, Orthopedic, Tonsillectomy, Tubal Ligation Respiratory: No Cardiac: No Neurological: No Genitourinary: No Gastrointestinal: Yes Gastroesophageal Reflux Musculoskeletal: Yes Chronic Back Pain Endocrine: No HEENT: No Cancer: No Psychosocial: No Integumentary: No Blood Disorders: No Physical Exam Vital Signs - First Documented 05/31/19 17:29 Temp 100.8 Pulse 104 Resp 20 B/P (MAP) 132/81 (98) Pulse Ox 100 O2 Delivery Room Air Capillary Refill : Less Than 3 Seconds Height: 5'4.00" Weight: 185lbs. oz. 83.586328dn; BMI Method:Stated General Appearance: WD/WN, no apparent distress Eyes: Right Eye Normal Inspection, Right Eye PERRL, Right Eye EOMI, Right Eye Abnormal EOM; Bilateral Eye Normal Inspection, Bilateral Eye PERRL, Bilateral Eye EOMI HEENT: PERRL/EOMI, normal ENT inspection, TMs normal, pharynx normal Neck: full range of motion, supple, normal inspection, carotid bruit, limited range of motion, tender lateral Respiratory: chest non-tender, lungs clear, normal breath sounds, no respiratory distress, no accessory muscle use, respiratory distress Cardiovascular: normal peripheral pulses, regular rate, rhythm, no edema, no gallop, no JVD, no murmur Gastrointestinal: normal bowel sounds, non tender, soft, no organomegaly, no pu lsatile mass, tenderness (as minimal diffuse abdominal tenderness without rebound or guarding) Genital/Rectal: normal genital exam; No normal genital exam Extremities: normal range of motion, non-tender, normal inspection, no pedal edema, no calf tenderness, normal capillary refill, pelvis stable Neurologic/Psychiatric: pickle processor II-XII nml as tested, no motor/sensory deficits, alert, normal mood/affect, oriented x 3 Skin: normal color, warm/dry, cyanosis, cool, diaphoresis, damp Lymphatic: no adenopathy, axilla node tender (R), axilla node tender (L), inguinal node tender (R), inguinal node tender (L) Focused Exam Lactate Level 05/31/19 20:10: Lactic Acid Level 0.95 Lactic Acid Level Laboratory Tests Test 05/31/19 20:10 Lactic Acid Level 0.95 MMOL/L (0.50-2.00) Progress/Results/Core Measures Suspected Sepsis Recent Fever Within 48 Hours: Yes Infection Criteria Present: Suspected New Infection New/Unexplained Altered Menta: No Sepsis Screen: Possible Sepsis Risk SIRS Temperature:100.8 Pulse: 104 Respiratory Rate: 20 Laboratory Tests 05/31/19 19:40: White Blood Count 8.9 Blood Pressure 132 /81 Mean: 98 05/31/19 20:10: Lactic Acid Level 0.95 Laboratory Tests 05/31/19 19:40: Creatinine 0.51L, Platelet Count 215, Total Bilirubin 0.5 Results/Orders Lab Results Laboratory Tests Test 05/31/19 17:35 05/31/19 19:40 05/31/19 20:10 Range/Units Urine Color YELLOW Urine Clarity CLEAR Urine pH 5.5 5-9 Urine Specific [place] 1.025 H 1.016-1.022 Urine Protein NEGATIVE NEGATIVE Urine Glucose (UA) NEGATIVE NEGATIVE Urine Ketones NEGATIVE NEGATIVE Urine Nitrite NEGATIVE NEGATIVE Urine Bilirubin NEGATIVE NEGATIVE Urine Urobilinogen 0.2 NORMAL MG/DL Urine Leukocyte Esterase NEGATIVE NEGATIVE Urine RBC (Auto) NEGATIVE NEGATIVE Urine RBC NONE /HPF Urine WBC 5-10 H /HPF Urine Squamous Epithelial Cells 25-50 H /HPF Urine Renal Epithelial Cells NONE /HPF Urine Crystals NONE /LPF Urine Bacteria MODERATE H /HPF Urine Casts NONE /LPF Urine Mucus LARGE H /LPF Urine Culture Indicated NO White Blood Count 8.9 4.3-11.0 10^3/uL Red Blood Count 4.71 4.35-5.85 10^6/uL Hemoglobin 14.2 11.5-16.0 G/DL Hematocrit 42 35-52 % Mean Corpuscular Volume 89 80-99 FL Mean Corpuscular Hemoglobin 30 25-34 PG Mean Corpuscular Hemoglobin Concent 34 32-36 G/DL Red Cell Distribution Width 13.1 10.0-14.5 % Platelet Count 215 130-400 10^3/uL Mean Platelet Volume 9.6 7.4-10.4 FL Neutrophils (%) (Auto) 75 42-75 % Lymphocytes (%) (Auto) 18 12-44 % Monocytes (%) (Auto) 7 0-12 % Eosinophils (%) (Auto) 0 0-10 % Basophils (%) (Auto) 0 0-10 % Neutrophils # (Auto) 6.7 1.8-7.8 X 10^3 Lymphocytes # (Auto) 1.6 1.0-4.0 X 10^3 Monocytes # (Auto) 0.6 0.0-1.0 X 10^3 Eosinophils # (Auto) 0.0 0.0-0.3 10^3/uL Basophils # (Auto) 0.0 0.0-0.1 10^3/uL Sodium Level 139 135-145 MMOL/L Potassium Level 4.1 3.6-5.0 MMOL/L Chloride Level 102 98-107 MMOL/L Carbon Dioxide Level 18 L 21-32 MMOL/L Anion Gap 19 H 5-14 MMOL/L Blood Urea Nitrogen 10 7-18 MG/DL Creatinine 0.51 L 0.60-1.30 MG/DL Estimat Glomerular Filtration Rate > 60 BUN/Creatinine Ratio 20 Glucose Level 129 H 70-105 MG/DL Calcium Level 9.7 8.5-10.1 MG/DL Corrected Calcium 9.3 8.5-10.1 MG/DL Total Bilirubin 0.5 0.1-1.0 MG/DL Aspartate Amino Transf (AST/SGOT) 28 5-34 U/L Alanine Aminotransferase (ALT/SGPT) 34 0-55 U/L Alkaline Phosphatase 83 40-136 U/L Total Protein 7.8 6.4-8.2 GM/DL Albumin 4.5 3.2-4.5 GM/DL Lactic Acid Level 0.95 0.50-2.00 MMOL/L My Orders Orders - LOIS RODARTE MD Cbc With Automated Diff (05/31/19 17:39) Comprehensive Metabolic Panel (05/31/19 17:39) Blood Culture (05/31/19 17:39) Lactic Acid Analyzer (05/31/19 17:39) Ua Culture If Indicated (05/31/19 17:39) Chest 1 View Ap/Pa Only (05/31/19 17:39) Ed Iv/Invasive Line Start (05/31/19 17:39) Ns Iv 1000 Ml (Sodium Chloride 0.9%) (05/31/19 17:45) Ketorolac Injection (Toradol Injection) (05/31/19 20:15) Rabies Immune Globulin/Pf Inj (Hyperrab (05/31/19 20:30) Rabies Vaccine Human Dipl Cell (Rabavert (05/31/19 20:30) Ct Head/Cervical Spine Wo (05/31/19 20:42) Ct Abdomen/Pelvis Wo (05/31/19 21:04) Rabies Vaccine Human Dipl Cell (Rabavert (05/31/19 20:53) Medications Given in ED Current Medications Medications Dose Ordered Sig/Shara Route Start Time Stop Time Status Last Admin Dose Admin Ketorolac Tromethamine 30 mg ONCE ONCE IVP 05/31/19 20:15 05/31/19 20:16 DC 05/31/19 20:12 30 MG Rabies Immune Globulin 20 UNITS/KG ONCE ONCE IM 05/31/19 20:30 05/31/19 21:07 DC 05/31/19 21:22 1,660 UNIT Rabies Vaccine Human Diploid Cell 1 ml ONCE ONCE IM 05/31/19 20:30 05/31/19 21:07 DC 05/31/19 21:25 1 ML Vital Signs/I&O 05/31/19 17:29 Temp 100.8 Pulse 104 Resp 20 B/P (MAP) 132/81 (98) Pulse Ox 100 O2 Delivery Room Air Capillary Refill : Less Than 3 Seconds Blood Pressure Mean: 98 Progress Note : Progress Note Patient c/o severe neck pain, fever, nausea, and abdominal pain. Patient states that she hasn't been able to move her neck for 3 days and it is causing her severe pain. Reports that her stomach cramping, nausea, and fever started today. She reports that she had a bat in her room but doesn't feel like she was bitten and doesn't have any wounds that she knows of . The incident of the bat was in her room 3 weeks ago. She states she has pain in her neck anytime she turns it. She does denies any nuchal rigidity or meningismus but she does have somewhat of a stiff neck to turning it. CT of the abdomen and pelvis head neck well unremarkable except for degenerative changes CBC does not reveal leukocytosis or shift Urinalysis reveals probable urinary tract infection I feel that her pain is probably more from arthritis and possible cervical disc disease and it is from anything else We will treat her urinary tract infection with cefdinir 300 twice a day for 7 days I am prescribing a Medrol Dosepak for her neck pain We did start rabies vaccines and give the patient rabies immunoglobulin She was discharged to follow-up with her doctor this week and worsening or problems return immediately Departure Impression Primary Impression: Cervical arthritis Additional Impressions: Cervical spine arthritis Urinary tract infection Disposition: HOME, SELF-CARE Condition: Stable Departure-Patient Inst. Referrals: ANDRES RAMIREZ MD (PCP) Primary Care Physician NO,LOCAL PHYSICIAN (Family) Primary Care Physician Patient Instructions: Kidney Infection, Generalized Neck Pain, Fibromyalgia (DC), Spinal Stenosis, Chronic Neck Pain (DC) Scripts Hydrocodone/Acetaminophen (Keyes 5-325 Tablet) 1 Each Tablet 1 TAB PO Q6H for Pain MDD 10 TABS for 7 Days, #14 TAB Prov: LOIS RODARTE MD 05/31/19 Methylprednisolone (Medrol) 4 Mg Tab.ds.pk 4 MG PO UD for 6 Days, #21 PKG PER DOSE PACK INSTRUCTIONS Prov: LOIS RODARTE MD 05/31/19 Methylprednisolone (Medrol) 4 Mg Tab 4 MG PO UD for 6 Days, #21 TAB as directed per dose pack Prov: LOIS RODARTE MD 05/31/19 LOIS RODARTE MD May 31, 2019 20:47
[2019-05-31] MEDS ORDERED: RABIES VACCINE HUMAN DIPL CELL 1 ML/2.5 UNITS SYR ONE (20:53)
--- NOTE | 2019-05-31 21:34 | Diagnostic Imaging Report ---
PROCEDURE: CT head and CT cervical spine without contrast. TECHNIQUE: Multiple contiguous axial images were obtained through the brain and cervical spine without the use of intravenous contrast. Sagittal and coronal reformations through the cervical spine were then performed. Auto Exposure Controls were utilized during the CT exam to meet ALARA standards for radiation dose reduction. DATE: May 31, 2019. COMPARISON: None. INDICATION: 63-year-old female, head and neck pain. FINDINGS: The ventricles and cerebral spinal fluid spaces are of normal size and configuration for the patient's age. There is no mass effect or midline shift. There is no acute intracranial hemorrhage. There is no abnormal extra-axial fluid collection. The visualized portions of the paranasal sinuses, mastoid air cells and middle ears are well aerated. There is no identified facet joint subluxation or dislocation. There is no asymmetric widening of the cervical disc spaces. There are multilevel prominent endplate degenerative related changes and osteophytes associated with the cervical and visualized thoracic spine. The cervical disc heights are fairly well preserved. There is chondrocalcinosis with arthritis at the C1-C2 articulation. CT is limited for assessment of disc pathology as well as additional nonbony causes of pathology within the spinal canal. There is no identified acute fracture of the cervical spine. The visualized portions of the lung apices are clear. There are carotid vascular calcifications noted. IMPRESSION: 1. No identified acute intracranial abnormality. 2. Multilevel advanced disc degenerative changes of the cervical spine. Dictated by: Dictated on workstation # [id number]
--- NOTE | 2019-05-31 21:41 | Diagnostic Imaging Report ---
PROCEDURE: CT abdomen and pelvis without contrast. TECHNIQUE: Multiple contiguous axial images were obtained through the abdomen and pelvis without the use of intravenous contrast. Auto Exposure Controls were utilized during the CT exam to meet ALARA standards for radiation dose reduction. DATE: May 31, 2019. COMPARISON: None. INDICATION: 63-year-old female, abdominal pain. FINDINGS: There are limitations for evaluation of the abdominal organs, neoplastic processes, abscess, and limited evaluation of the vasculature relating to the lack of intravenous contrast. There are mild linear opacities in the right lower lobe likely relating to very mild atelectasis. Additional visualized portions of the lung bases are grossly clear. The heart is not enlarged. There is no identified pericardial effusion. The liver is normal in size and contour. The patient is status post cholecystectomy. There is no intrahepatic or extrahepatic bile duct dilation. The main pancreatic duct is not abnormally dilated. Unremarkable noncontrast appearance of the pancreatic parenchyma. The spleen is normal in size. The adrenal glands are unremarkable. There is a 2 mm nonobstructing left renal stone on axial image 60. The urinary collecting systems are not distended. There is no identified ureteral stone. There is a right-sided pelvic calcification compatible with a phlebolith. The urinary bladder is unremarkable in appearance. Unremarkable appearance of the uterus and adnexa on CT. The intestinal tract is not distended. There is lack of visualization of the appendix. There are no secondary findings to suggest acute appendicitis. There is a very small hiatal hernia. There is no free intraperitoneal air. There is no drainable fluid collection. There is no free pelvic fluid. There are atherosclerotic calcifications. There is no identified abnormally enlarged lymph node in the abdomen or pelvis which meets CT size criteria for adenopathy. There is chondrocalcinosis. There is a long-standing well-corticated ossification adjacent to the left greater trochanter. There are findings compatible with calcific tendinitis in the distribution of the right gluteus minimus. There are sacroiliac arthritic changes. There are multilevel advanced degenerative changes of the spine. There is no identified acute bony abnormality. IMPRESSION: CT abdomen and pelvis: 1. No identified acute abnormality in the abdomen or pelvis. 2. There is a 2 mm nonobstructing left renal stone. 3. Very small hiatal hernia. Dictated by: Dictated on workstation # [id number]
[2019-05-31] MEDS ORDERED: METH4TAB PO (22:14)
[2019-05-31] MEDS ORDERED: HYDR-4226 PO (22:14)
[2019-05-31] MEDS ORDERED: NF-METHYLP PO (22:14)
[2019-05-31 22:20] VITALS: BP 91/70
== END 2019-05-31 22:20 | disposition home or self-care (01) ==
LOC: EDUNIT# 17:07 → ER FS 17:08
DX: M47.812 Spondylosis without myelopathy or radiculopathy, cervical region (principal); M46.92 Unspecified inflammatory spondylopathy, cervical region; N39.0 Urinary tract infection, site not specified; K21.9 Gastro-esophageal reflux disease without esophagitis; Z91.041 Radiographic dye allergy status; Z88.8 Allergy status to other drugs, medicaments and biological substances; Z79.52 Long term (current) use of systemic steroids; Z90.49 Acquired absence of other specified parts of digestive tract; Z90.89 Acquired absence of other organs; Z98.51 Tubal ligation status
CPT/HCPCS: 36415; 70450; 71045; 72125; 74176; 80053; 81000; 83605; 85025; 87040; 90375; 90471; 90675; 96361; 96372; 96374

== ENCOUNTER 2023-01-11 15:47 | Emergency (ER) | payer MEDICAID, MEDICARE ==
[~2023-01-11] VITALS: Ht 160 cm; Wt 84.0 kg
[~2023-01-11 15:47] MED LIST changes: +HYDR-4226 PO; +METH4TAB PO; +NF-METHYLP PO
[2023-01-11] MEDS ORDERED: CYCLOBENZAPRINE 10 MG (FLEXERIL) TAB PO STA (15:58)
[2023-01-11] MEDS ORDERED: KETOROLAC 15 MG/ML VIAL IM ONE (16:00)
--- NOTE | 2023-01-11 16:06 | ED Upper Extremity ---
General Chief Complaint: Upper Extremity Stated Complaint: LT SIDE SHOULDER PAIN ACHING DOWN ARM, WRIST Source: patient Exam Limitations: no limitations History of Present Illness Date Seen by Provider: Jan 11, 2023 Time Seen by Provider: 15:50 Initial Comments 67-year-old female with past medical history of hypertension and hyperlipidemia coming in due to left upper back pain radiating to her shoulder down to her wrist. Been going on for 2 days after she was moving some boxes. It is worse with movement, better with rest and Tylenol. Last had Tylenol this morning. Denies any falls, chest pain, shortness of breath, abdominal pain, nausea, vomiting, diarrhea, weakness, numbness, or any other concerns. Allergies and Home Medications Allergies Coded Allergies: iodine (Unverified Allergy, Mild, 02/05/19) ziprasidone (Unverified Allergy, Mild, 02/05/19) Patient Home Medication List Home Medication List Reviewed: Yes Hydrocodone/Acetaminophen (Hydrocodone/Acetaminophen 5 MG/325 MG TAB) 1 Each Tablet, 1 TAB PO Q6H Prescribed by: MIKHAIL RODARTE MD on 05/31/192213 Methylprednisolone (Medrol Dose pack) 4 Mg Tab, 4 MG PO UD Prescribed by: MIKHAIL RODARTE MD on 05/31/192213 Methylprednisolone (Medrol) 4 Mg Tab.ds.pk, 4 MG PO UD Prescribed by: MIKHAIL RODARTE MD on 05/31/192213 Prednisone (Prednisone) 20 Mg Tab, 40 MG PO DAILY Prescribed by: ASAD CAMPBELL on 03/06/19 0232 Review of Systems Constitutional: No fever EENTM: no symptoms reported Respiratory: no symptoms reported Cardiovascular: no symptoms reported Genitourinary: no symptoms reported Musculoskeletal: see HPI Skin: no symptoms reported Psychiatric/Neurological: No Symptoms Reported Past Xyibsmb-Bwmcgs-Vcgchp Hx Patient Social History Tobacco Use?: No Use of E-Cig and/or Vaping dev: No Substance use?: No Alcohol Use?: No Pt feels they are or have been: No Seasonal Allergies Seasonal Allergies: No Past Medical History Surgery/Hospitalization HX: HYPERLIPIDEMIA HTN CHRONIC JOINT PAIN/BACK PAIN Surgeries: Yes Appendectomy, Gallbladder, Orthopedic, Tonsillectomy, Tubal Ligation Respiratory: No Cardiac: No Neurological: No Genitourinary: No Gastrointestinal: Yes Gastroesophageal Reflux Musculoskeletal: Yes Chronic Back Pain Endocrine: No HEENT: No Cancer: No Psychosocial: No Integumentary: No Blood Disorders: No Physical Exam Vital Signs Vital Signs - First Documented 01/11/23 15:50 Temp 36.8 Pulse 83 Resp 16 B/P (MAP) 118/82 (94) Pulse Ox 97 O2 Delivery Room Air Capillary Refill : Height, Weight, BMI Height: 5'4.00" Weight: 185lbs. oz. 83.164094mk; BMI Method:Stated General Appearance: WD/WN, mild distress HEENT: PERRL/EOMI, normal ENT inspection, pharynx normal Neck: other (Exquisite tenderness along the left trapezius that recreates her pain, no pain along the shoulder joint, elbow joint, or wrist joint, positive Spurling's and arm squeeze test) Cardiovascular: regular rate, rhythm, no edema, no murmur Respiratory: chest non-tender, lungs clear, normal breath sounds, no respiratory distress, no accessory muscle use Gastrointestinal: normal bowel sounds, non tender, soft; No distended, No guarding Back: normal inspection, no CVA tenderness, no vertebral tenderness Shoulder: normal inspection, non-tender, no evidence of injury, normal ROM Elbow/Forearm: normal inspection, non-tender, no evidence of injury, normal ROM Wrist: Yes normal inspection, Yes non-tender, Yes no evidence of injury, Yes normal ROM Hand: normal inspection, non-tender, no evidence of injury, normal ROM Neurologic/Tendon: normal sensation, normal motor functions, normal tendon functions Neurologic/Psychiatric: no motor/sensory deficits, alert, normal mood/affect Skin: normal color, warm/dry Progress/Results/Core Measures Results/Orders My Orders Orders - CHONG MAZARIEGOS MD Ekg Tracing (01/11/23 15:58) Cyclobenzaprine Tablet (Flexeril Tablet) (01/11/23 15:58) Ketorolac Injection (Toradol Injection) (01/11/23 16:00) Cervical Spine 4 Or 5 View (01/11/23 15:58) Bupivacaine 0.5% Injection (Sensorcaine (01/11/23 16:30) Medications Given in ED Current Medications Medications Dose Ordered Sig/Shara Route Start Time Stop Time Status Last Admin Dose Admin Ketorolac Tromethamine 15 mg ONCE ONCE IM 01/11/23 16:00 01/11/23 16:01 DC 01/11/23 16:06 15 MG Vital Signs/I&O 01/11/23 15:50 Temp 36.8 Pulse 83 Resp 16 B/P (MAP) 118/82 (94) Pulse Ox 97 O2 Delivery Room Air Progress Progress Note : Progress Note 67-year-old female with left upper back pain radiating down the left arm. ABCs were intact and vitals were stable on presentation. Denies any chest pain, palpitations, or really any cardiac symptoms. The pediatrician/medical doctor that talked her on the phone from her clinic did request the patient come to the ER and specifically requested an EKG be done. Because of this, we did order an EKG, however her clinical symptoms did not seem consistent with ACS. I do see a left bundle branch block, the patient states that this has been present and she knows about this. She is exquisitely tender in 1 area in her left trap where I feel the muscle spasm and in accord. I used a 25-gauge 1 and half inch needle to essentially dry needle the area, and then injected 2-1/2 cc of 0.5% bupivacaine as a trigger point injection after cleansing the area with alcohol and allowing it to dry. Patient had significant relief from this. I think her pain is two-part, I think there is a significant cervical spine component. She is Spurling positive and arm squeeze test positive. Additionally, the pain radiates below the elbow which to me is more consistent with cervical spine etiology. X-ray cervical spine ordered and on my interpretation she has significant degenerative changes in her cervical spine. She was also given an IM injection of Toradol which significantly helped with her discomfort. I believe she is otherwise stable for discharge with outpatient follow-up. She was sent home with strict return precautions and discussed following up with orthopedics, specifically a spine physician Initial ECG Impression Date: Jan 11, 2023 Initial ECG Impression Time: 16:03 Initial ECG Rate: 91 Initial ECG Rhythm: Normal Sinus Comment Wide QRS with a left bundle branch block, no STEMI by Sgarbossa criteria Diagnostic Imaging Diagonstic Imaging: Xray (cervical spine) Comments [facility] [place], [place] NAME: GABI AL Michelle [facility] REC#: [id number] PT STATUS: REG ER : 1955 PHYSICIAN: CHONG MAZARIEGOS MD ADMIT DATE: 01/11/23/ER FS Draft Date of Exam:01/11/23 CERVICAL SPINE 4 OR 5 VIEW INDICATION: Left-sided neck pain. FINDINGS: There are degenerative changes to the discs, endplates, and facets with bulky anterior osteophytes. Alignment is normal. No fracture. The prevertebral space is unremarkable. IMPRESSION: No cervical fracture or traumatic malalignment. Dictated on workstation # [id number] Dict: 01/11/23 1630 Trans: 01/11/23 1633 [id number] Interpreted by: LOI QUIELS Electronically signed by: Departure Impression Primary Impression: Muscle spasm Additional Impression: Cervical radicular pain Disposition: 01 HOME, SELF-CARE Condition: Stable Departure-Patient Inst. Decision time for Depature: 16:40 Referrals: ANDRES RAMIREZ MD (PCP) Primary Care Physician NO,LOCAL PHYSICIAN (Family) Primary Care Physician KVNG MORA Patient Instructions: Muscle Spasm ED, Radiculopathy (DC) Add. Discharge Instructions: I believe you have 2 parts to your pain. The first parts I believe you have nerves that are aggravated from your cervical spine in your neck which is causing the pain all the way down your arm. I also believe you are experiencing a muscle spasm in your upper back which we tried to help release. Take naproxen 250 mg twice a day as well as Tylenol 1000 mg every 6-8 hours for pain. I also recommend using a heating pad on the area and getting massage. Please follow-up with your regular doctor and you may need a referral to an orthopedist or spine doctor. Work/School Note: Work Release Form Date Seen in the Emergency Department: Jan 11, 2023 Return to Work: Jan 12, 2023 Restrictions: No Restrictions CHONG MAZARIEGOS MD Jan 11, 2023 16:05
[2023-01-11] MEDS ORDERED: BUPIVACAINE 0.5% 30 ML (SENSORCAINE) VIAL INJ ONE (16:30)
--- NOTE | 2023-01-11 16:33 | Diagnostic Imaging Report ---
INDICATION: Left-sided neck pain. FINDINGS: There are degenerative changes to the discs, endplates, and facets with bulky anterior osteophytes. Alignment is normal. No fracture. The prevertebral space is unremarkable. IMPRESSION: No cervical fracture or traumatic malalignment. Dictated by: Dictated on workstation # [id number]
[2023-01-11 16:43] VITALS: BP 118/82
== END 2023-01-11 16:44 | disposition home or self-care (01) ==
LOC: EDUNIT# 15:47 → ER FS 15:50
DX: M62.830 Muscle spasm of back (principal); M54.12 Radiculopathy, cervical region; I44.7 Left bundle-branch block, unspecified; X50.0XXA Overexertion from strenuous movement or load, initial encounter
CPT/HCPCS: 72050; 93005

== ENCOUNTER 2023-02-18 08:37 | Emergency (ER) | payer MEDICARE ==
[~2023-02-18] VITALS: Ht 160 cm; Wt 83.0 kg
[2023-02-18 08:48] VITALS: BP 140/87
--- NOTE | 2023-02-18 09:12 | ED GI ---
General Chief Complaint: General Problems/Pain Stated Complaint: ELEVATED BP AND BLOODY STOOLS Nursing Triage Note: Patient has presented to ER after having 2 eipsodes of bright red blood in the stool this morning. Source of Information: Patient History of Present Illness Date Seen by Provider: Feb 18, 2023 Time Seen by Provider: 08:45 Initial Comments 67-year-old female patient with history of hypertension, GERD, chronic back pain and hemorrhoids states she woke up around 4 AM to go to the bathroom and then could not fall asleep and checked her blood pressure that was 150/111. Patient stated she had halos around her vision for several years and recently had a stressful condition going on at her home. Patient took her blood pressure medication later on and her blood pressure at arrival to ER was 140/87. Patient complaining of 1 episode of rectal bleeding this morning with passing several blood clots and red blood without rectal pain. Patient complaining of mild lower abdominal discomfort for a while and rated her pain as 2/10. Patient denies recent constipation or diarrhea, change of bowel habit, fever and chills, dizziness, palpitation, nausea and vomiting, chest pain and shortness of breath. Patient states she had episode of hemorrhoid and rectal bleeding but never had passing clots. Patient states that she had colonoscopy more than 10 years ago. Allergies and Home Medications Allergies Coded Allergies: iodine (Unverified Allergy, Mild, 02/05/19) ziprasidone (Unverified Allergy, Mild, 02/05/19) Patient Home Medication List Home Medication List Reviewed: Yes Hydrocodone/Acetaminophen (Hydrocodone/Acetaminophen 5 MG/325 MG TAB) 1 Each Tablet, 1 TAB PO Q6H Prescribed by: MIKHAIL RODARTE MD on 05/31/192213 Methylprednisolone (Medrol Dose pack) 4 Mg Tab, 4 MG PO UD Prescribed by: MIKHAIL RODARTE MD on 05/31/192213 Methylprednisolone (Medrol) 4 Mg Tab.ds.pk, 4 MG PO UD Prescribed by: MIKHAIL RODARTE MD on 05/31/192213 Prednisone (Prednisone) 20 Mg Tab, 40 MG PO DAILY Prescribed by: ASAD CAMPBELL on 03/06/19 0232 Review of Systems Review of Systems Constitutional: no symptoms reported, see HPI EENTM: No Symptoms Reported Respiratory: No Symptoms Reported, See HPI Cardiovascular: No Symptoms Reported, See HPI Gastrointestinal: See HPI Genitourinary: No Symptoms Reported, See HPI Musculoskeletal: no symptoms reported, see HPI Psychiatric/Neurological: No Symptoms Reported, See HPI Endocrine: No Symptoms Reported, See HPI Hematologic/Lymphatic: No Symptoms Reported, See HPI Past Ojtwnqc-Yegefr-Kgikte Hx Patient Social History Tobacco Use?: No Use of E-Cig and/or Vaping dev: No Substance use?: No Alcohol Use?: No Seasonal Allergies Seasonal Allergies: No Past Medical History Surgery/Hospitalization HX: HYPERLIPIDEMIA HTN CHRONIC JOINT PAIN/BACK PAIN Surgeries: Yes Appendectomy, Gallbladder, Orthopedic, Tonsillectomy, Tubal Ligation Respiratory: No Cardiac: No Neurological: No Genitourinary: No Gastrointestinal: Yes Gastroesophageal Reflux Musculoskeletal: Yes Chronic Back Pain Endocrine: No HEENT: No Cancer: No Psychosocial: No Integumentary: No Blood Disorders: No Physical Exam Vital Signs Vital Signs - First Documented 02/18/23 08:48 Temp 36.2 Pulse 95 Resp 97 B/P (MAP) 140/87 (104) O2 Delivery Room Air Capillary Refill : Height/Weight/BMI Height: 5'4.00" Weight: 185lbs. oz. 83.052265ka; 32.00 BMI Method:Stated General Appearance: WD/WN, no apparent distress HEENT: PERRL/EOMI, normal ENT inspection, TMs normal, pharynx normal Neck: non-tender, full range of motion, supple, normal inspection Respiratory: chest non-tender, lungs clear, normal breath sounds, no respiratory distress, no accessory muscle use Cardiovascular: normal peripheral pulses, regular rate, rhythm, no edema, no gallop, no JVD, no murmur Peripheral Pulses: 2+ Carotid (R), 2+ Carotid (L), 2+ Femoral (R), 2+ Femoral (L), 2+ Dorsalis Pedis (R), 2+ Left Dors-Pedis (L), 2+ Radial Pulses (R), 2+ Radial Pulses (L) Gastrointestinal: normal bowel sounds, non tender, soft, no organomegaly, no pulsatile mass Rectal: other (Rectal exam in presence of business support professional showed small skin tag at 6:00, small amount maroon color blood in the rectum without stool, no palpable mass) Extremities: normal range of motion, non-tender, normal inspection, no pedal edema, no calf tenderness, normal capillary refill, pelvis stable Pelvic: discharge 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, no motor/sensory deficits, alert, oriented x 3, other (Anxious) Skin: normal color, warm/dry Lymphatic: no adenopathy Progress/Results/Core Measures Results/Orders Lab Results Laboratory Tests Test 02/18/23 09:03 02/18/23 09:30 02/18/23 09:57 Range/Units Stool Occult Blood Immunoassay POSITIVE H NEGATIVE White Blood Count 5.6 4.3-11.0 10^3/uL Red Blood Count 4.52 3.80-5.11 10^6/uL Hemoglobin 13.4 11.5-16.0 g/dL Hematocrit 40 35-52 % Mean Corpuscular Volume 88 80-99 fL Mean Corpuscular Hemoglobin 30 25-34 pg Mean Corpuscular Hemoglobin Concent 34 32-36 g/dL Red Cell Distribution Width 13.3 10.0-14.5 % Platelet Count 199 130-400 10^3/uL Mean Platelet Volume 9.5 9.0-12.2 fL Immature Granulocyte % (Auto) 0 % Neutrophils (%) (Auto) 63 42-75 % Lymphocytes (%) (Auto) 30 12-44 % Monocytes (%) (Auto) 5 0-12 % Eosinophils (%) (Auto) 1 0-10 % Basophils (%) (Auto) 0 0-10 % Neutrophils # (Auto) 3.6 1.8-7.8 10^3/uL Lymphocytes # (Auto) 1.7 1.0-4.0 10^3/uL Monocytes # (Auto) 0.3 0.0-1.0 10^3/uL Eosinophils # (Auto) 0.1 0.0-0.3 10^3/uL Basophils # (Auto) 0.0 0.0-0.1 10^3/uL Immature Granulocyte # (Auto) 0.0 0.0-0.1 10^3/uL Sodium Level 142 135-145 MMOL/L Potassium Level 3.3 L 3.6-5.0 MMOL/L Chloride Level 105 98-107 MMOL/L Carbon Dioxide Level 18 L 21-32 MMOL/L Anion Gap 19 H 5-14 MMOL/L Blood Urea Nitrogen 13 7-18 MG/DL Creatinine 0.52 L 0.60-1.30 MG/DL Estimat Glomerular Filtration Rate 103 BUN/Creatinine Ratio 25 Glucose Level 128 H 70-105 MG/DL Calcium Level 9.5 8.5-10.1 MG/DL Corrected Calcium 9.6 8.5-10.1 MG/DL Total Bilirubin 0.4 0.1-1.0 MG/DL Aspartate Amino Transf (AST/SGOT) 20 5-34 U/L Alanine Aminotransferase (ALT/SGPT) 18 0-55 U/L Alkaline Phosphatase 71 40-136 U/L Total Protein 6.6 6.4-8.2 GM/DL Albumin 3.9 3.2-4.5 GM/DL Lipase 17 8-78 U/L Prothrombin Time 12.7 12.2-14.7 SEC INR Comment 0.9 0.8-1.4 Activated Partial Thromboplast Time 22 L 24-35 SEC My Orders Orders - ANDRE THAKKAR MD Comprehensive Metabolic Panel (02/18/23 09:02) Lipase (02/18/23 09:02) Cbc With Automated Diff (02/18/23 09:02) Protime With Inr (02/18/23 09:02) Partial Thromboplastin Time (02/18/23 09:02) Occult Blood Stool (02/18/23 09:13) Ct Abdomen/Pelvis Wo (02/18/23 09:24) Vital Signs/I&O 02/18/23 08:48 Temp 36.2 Pulse 95 Resp 97 B/P (MAP) 140/87 (104) O2 Delivery Room Air Blood Pressure Mean: 104 Progress Progress Note : Progress Note 67-year-old female patient with history of hemorrhoids and hypertension and complaining of elevation of blood pressure at 150/111 and 1 episode of rectal bleeding this morning. Patient had blood pressure of 140/87 at arrival to ER. Patient had a stable vital signs with unremarkable physical exam except for rectal exam that showed small amount of maroon-colored stool with positive guaiac. Patient had unremarkable CBC and CMP and PT/INR and lipase. CT abdomen pelvis did not show acute finding. Patient states that she had colonoscopy more than 10 years ago and recently moved to this area and has appointment with the primary care physician at the end of January. Patient advised to discuss colo noscopy with her new provider and record her blood pressure for her appointment. Patient advised to return to ER if continues to have rectal bleeding or have blood pressure more than 180/100 that not getting better after taking extra pill of blood pressure medication. Diagnostic Imaging Diagonstic Imaging: CT Comments [facility]. [place], [place] NAME: G[facility]I AL [facility] REC#: [id number] PT STATUS: REG ER : 1955 PHYSICIAN: ANDRE THAKKAR MD ADMIT DATE: 02/18/23/ER FS Draft Date of Exam:02/18/23 CT ABDOMEN/PELVIS WO EXAMINATION: CT abdomen and pelvis without contrast. TECHNIQUE: Multiple contiguous axial images were obtained through the abdomen and pelvis without the use of intravenous contrast. All CT scans use one or more of the following dose optimizing techniques: automated exposure control, MA and/or KvP adjustment based on patient size and exam type or iterative reconstruction. HISTORY: Rectal bleeding and abdominal pain COMPARISON: 05/31/2019 FINDINGS: Limited views of the lower thorax are unremarkable. The liver is normal without focal lesion. There is no biliary ductal dilation. Gallbladder is absent. Pancreas is normal. Spleen is normal. Adrenal glands are normal. The kidneys are normal. There is no hydronephrosis. Urinary bladder is normal. Bowel is normal in caliber without obstruction or inflammation. No free fluid or air. No abdominal or pelvic lymphadenopathy. Aorta is normal in caliber without aneurysm. There are no suspicious osseus lesions. IMPRESSION: 1. No acute abnormality in the abdomen or pelvis. Dictated on workstation # [id number] Dict: 02/18/23 1011 Trans: 02/18/23 1017 [facility] [id number] Interpreted by: GIUSEPPE PAYNE MD Electronically signed by: Reviewed: Reviewed by Me Departure Impression Primary Impression: Rectal bleeding Additional Impressions: Hypertension Anxiety Disposition: 01 HOME, SELF-CARE Condition: Stable Departure-Patient Inst. Decision time for Depature: 10:30 Referrals: NO,LOCAL PHYSICIAN (PCP/Family) Primary Care Physician Patient Instructions: Bloody Stools, Adult ED, High Blood Pressure in Adults Add. Discharge Instructions: Follow-up with your primary care physician appointment at the end of January Drink plenty of liquids Return to ER if continues to have rectal bleeding Continue home medication All discharge instructions reviewed with patient and/or family. Voiced understanding. ANDRE THAKKAR MD Feb 18, 2023 09:12
[2023-02-18 09:35] LABS: BASOPHILS % (AUTO) 0 % (0-10); EOSINOPHILS # (AUTO) 0.1 10^3/uL (0.0-0.3); EOSINOPHILS % (AUTO) 1 % (0-10); HEMATOCRIT 40 % (35-52); HEMOGLOBIN 13.4 g/dL (11.5-16.0); LYMPHOCYTES # (AUTO) 1.7 10^3/uL (1.0-4.0); LYMPHOCYTES % (AUTO) 30 % (12-44); MEAN CORPUSCULAR HEMOGLOBIN 30 pg (25-34); MEAN CORPUSCULAR HGB CONC 34 g/dL (32-36); MEAN CORPUSCULAR VOLUME 88 fL (80-99); MEAN PLATELET VOLUME 9.5 fL (9.0-12.2); MONOCYTES # (AUTO) 0.3 10^3/uL (0.0-1.0); MONOCYTES % (AUTO) 5 % (0-12); NEUTROPHILS # (AUTO) 3.6 10^3/uL (1.8-7.8); NEUTROPHILS % (AUTO) 63 % (42-75); PLATELET COUNT 199 10^3/uL (130-400); WHITE BLOOD COUNT 5.6 10^3/uL (4.3-11.0)
[2023-02-18 10:01] LABS: ALBUMIN 3.9 GM/DL (3.2-4.5); BILIRUBIN,TOTAL 0.4 MG/DL (0.1-1.0); CALCIUM 9.5 MG/DL (8.5-10.1); CREATININE SERUM 0.52 MG/DL (0.60-1.30); TOTAL PROTEIN 6.6 GM/DL (6.4-8.2)
[2023-02-18 10:13] LABS: INR 0.9 (0.8-1.4); PROTHROMBIN TIME PATIENT 12.7 SEC (12.2-14.7)
--- NOTE | 2023-02-18 10:18 | Diagnostic Imaging Report ---
EXAMINATION: CT abdomen and pelvis without contrast. TECHNIQUE: Multiple contiguous axial images were obtained through the abdomen and pelvis without the use of intravenous contrast. All CT scans use one or more of the following dose optimizing techniques: automated exposure control, MA and/or KvP adjustment based on patient size and exam type or iterative reconstruction. HISTORY: Rectal bleeding and abdominal pain COMPARISON: 05/31/2019 FINDINGS: Limited views of the lower thorax are unremarkable. The liver is normal without focal lesion. There is no biliary ductal dilation. Gallbladder is absent. Pancreas is normal. Spleen is normal. Adrenal glands are normal. The kidneys are normal. There is no hydronephrosis. Urinary bladder is normal. Bowel is normal in caliber without obstruction or inflammation. No free fluid or air. No abdominal or pelvic lymphadenopathy. Aorta is normal in caliber without aneurysm. There are no suspicious osseus lesions. IMPRESSION: 1. No acute abnormality in the abdomen or pelvis. Dictated by: Dictated on workstation # [id number]
[2023-02-18 10:32] LABS: POTASSIUM 3.3 MMOL/L (3.6-5.0)
== END 2023-02-18 10:35 | disposition home or self-care (01) ==
LOC: EDUNIT# 08:37 → ER FS 08:40
DX: K62.5 Hemorrhage of anus and rectum (principal); I10 Essential (primary) hypertension; F41.9 Anxiety disorder, unspecified
CPT/HCPCS: 36415; 74176; 80053; 82274; 83690; 85025; 85610; 85730